=== PATIENT | female | born 1945 | race Caucasian/White ===

== ENCOUNTER 2017-10-20 09:08 | Emergency (ER) | payer MEDICAID ==
--- NOTE | 2017-10-20 09:34 | ED Physician Chart ---
ED Chief Complaint/HPI - Patient Information Date Seen:: 10/20/17 Time Seen:: 09:29 Chief Complaint:: Left lower leg dislocation History of Present Illness:: 72 yo female had a left anterior tibia discoloration for 3 years. The discoloration started as a laceration 3 years ago. It was not painful or itchy. It did not have secretion. Recently, SNF noticed more changes of color. LLE venous u/s 2 weeks ago showed DVT and Eliquis was started. Despite the treatment , the skin lesions did not improve. The patient was unambulatory due to paraplegia from spinal cord injury. Allergies:: Allergies Allergy/AdvReac Type Severity Reaction Status Date / Time No Known Allergies Allergy Verified 10/20/17 09:24 ED Review of Systems - Review of Systems General/Constitutional: No fever, No chills Skin: Skin lesions Head: No headache Eyes: No loss of vision ENT: No earache Neck: No neck pain Cardio Vascular: No chest pain Pulmonary: No SOB GI: No nausea, No vomiting Neurological: Other (paraplegic ) ED Past Medical History - Past Medical History Past Medical History: HTN, DM, Dyslipidemia, Seizures, Other (Parkinson's disease) Social History: Non Smoker, No Alcohol, No Drug Use Surgical History: other (left ear surgery) Family Medical History - Family Member Mother History Unknown: Yes Ethnicity: Living Status: Unknown ED Physical Exam - Physical Examination General/Constitutional: Awake, Alert Other Gen/Cons comments:: bed bound Head: Atraumatic Eyes: PERRL ENMT: Nasal exam nl Neck: No nuchal rigidity Respiratory: Clear to Auscultation Cardio Vascular: RRR, No murmur, gallop, rubs, NL S1 S2 GI: No tenderness/rebounding/guarding Other Extremities comments:: Left anterior tibial focal dark brown pigmentation with increased superficial keratosis Other Neuro/Psych comments:: Bilateral feet drop, patellar reflex absence, ankle reflex absence. Motor strength: bilateral upper extremities 5/5, b/l lower extremities 1/5 ED Labs/Radiology/EKG Results - Radiology Results Results: Left lower extremity venous u/s: no DVT Left lower extremity arterial u/s: mild to moderate plaque throughout arterial system. No occlusion ED Assessment - Assessment General Assessment: Left lower extremity stasis dermatitis Peripheral vascular disease Assessment/Comments:: CBC, CMP, lipid panel, HbA1c, PT/PTT, CRP, ESR EKG, Trop I Left lower extremity venous/arterial duplex NS 1L IV bolus Aspirin 81mg po Spoke with Dr. Paul Roberto who agreed to have outpatient management of peripheral vascular disease D/c to SNF New order: Aspirin 81mg daily ED Septic Shock - . Is Septic Shock (SBP<90, OR Lactate>4 mmol\L) present?: No ED Reassessment (Disposition) - Reassessment Reassessment Condition:: Improved - Patient Disposition Discharge/Transfer:: Shelter Care - SNF
[2017-10-20 10:23] LABS: % BASOPHILS 1.4 % (0.0-2.0); % LYMPHOCYTES 32.4 % (20.0-50.0); % MONOCYTES 5.9 % (2.0-10.0); % NEUTROPHILS 59.3 % (40.0-80.0); BASOPHILE ABSOLUTE 0.1 Th/cumm (0-0.2); EOSINOPHILE ABSOLUTE 0.1 Th/cmm (0.1-0.4); HEMOGLOBIN 13.3 gm/dL (12-16); LYMPHOCYTE ABSOLUTE 3.4 Th/cmm (1.5-3.0); MEAN CELL VOLUME 90.9 fl (81-100); MEAN CORPUSCULAR HEMOGLOBIN 30.4 pg (27.0-31.0); MEAN CORPUSCULAR HGB CONC 33.5 pg (28.0-36.0); MONOCYTE ABSOLUTE 0.6 Th/cmm (0.3-1.0); NEUTROPHILE ABSOLUTE 6.4 Th/cmm (1.8-8.0); RED BLOOD COUNT 4.37 Mil/cmm (3.80-5.20); RED CELL DISTRIBUTION WIDTH 14.5 % (11.5-20.0); WHITE BLOOD COUNT 10.6 Th/cmm (4.8-10.8)
[2017-10-20 10:24] LABS: HEMATOCRIT 39.7 % (41.0-60); PLATELET COUNT 170 Th/cmm (150-400)
[2017-10-20 10:40] LABS: ALB/GLOB RATIO 0.9 (1.0-1.8); ALBUMIN 3.3 gm/dL (3.7-5.3); ALKALINE PHOSPHATASE 68 U/L (34-104); ANION GAP 9.4 (7.0-16.0); BILIRUBIN,TOTAL 0.3 mg/dL (0.3-1.0); BUN - UREA NITROGEN 25 mg/dL (7-25); CALCIUM SERUM 9.5 mg/dL (8.6-10.3); CARBON DIOXIDE 25.5 mEq/L (21.0-31.0); CHLORIDE 105 mEq/L (98-107); CREATININE - SERUM 0.5 mg/dL (0.6-1.2); GFR AFRICAN-AMERICAN > 60.0 ml/min (>90); GFR NON AFRICAN-AMERICAN > 60.0 ml/min; GLUCOSE 98 mg/dL (70-105); POTASSIUM SERUM 3.9 mEq/L (3.5-5.1); SGOT 17 U/L (13-39); SGPT/ALT 6 U/L (7-52); SODIUM SERUM 136 mEq/L (136-145); TOTAL PROTEIN,SERUM 6.9 gm/dL (6.0-8.3)
[2017-10-20] MEDS ORDERED: Sodium Chloride 0.9% 1,000 ML IV ONE (11:15)
[2017-10-20 11:34] LABS: CHOLESTEROL 108 mg/dL (<200); HDL -HIGH DENSITY LIPOPROTEIN 47 mg/dL (23-92); TRIGLYCERIDES 93 mg/dL (<150)
[2017-10-20 11:43] LABS: INR 1.11 (0.5-1.4); PROTHROMBIN TIME (TEST) 11.6 SECONDS (9.5-11.5)
[2017-10-20] MEDS ORDERED: Aspirin 81mg Chewable Tab PO STA (12:13)
[2017-10-20] MEDS ORDERED: Aspirin 81mg Chewable Tab ONE (12:14)
--- NOTE | 2017-10-20 12:35 | Diagnostic Imaging Report ---
Left lower extremity Doppler venous ultrasound exam HISTORY: Pain/swelling Sonographic sector images were obtained through the deep venous systems of the left leg. Associated Doppler data was obtained. The exam demonstrates patency of the common femoral, superficial femoral, popliteal, and posterior tibial veins. Specifically, no thrombus is seen. There are normal compressibility and augmentation responses. IMPRESSION: Negative exam for deep vein thrombophlebitis.
--- NOTE | 2017-10-20 15:24 | Diagnostic Imaging Report ---
Left lower extremity Doppler arterial ultrasound exam HISTORY: Swelling, pain Sonographic sector images were obtained through the arterial system of the left leg. Associated Doppler data was obtained. The exam demonstrates biphasic waveforms within the common femoral, superficial femoral, popliteal, anterior tibial, and dorsalis pedis arteries. Monophasic waveforms noted through the posterior tibial artery region. No significant decrease in velocity identified through the arterial system. The ankle-brachial index could not be evaluated due to the presence of an intravascular catheter within the upper extremity. Sonographic sector images demonstrate mild to moderate diffuse atherosclerotic changes throughout the arterial system. No significant focal narrowing or stenosis the sonographically identified. IMPRESSION: 1. Evidence of mild to moderate diffuse atherosclerotic changes. No significant focal narrowing, stenosis, or occlusion identified.
[2017-10-20 18:34] LABS: A1C % 5.4 % (4.0-6.0)
== END 2017-10-20 13:20 ==
LOC: ER 09:08
DX: S83.105A Unspecified dislocation of left knee, initial encounter (principal); I10 Essential (primary) hypertension; E11.9 Type 2 diabetes mellitus without complications; E78.5 Hyperlipidemia, unspecified; X58.XXXA Exposure to other specified factors, initial encounter; Y93.89 Activity, other specified; Y92.89 Other specified places as the place of occurrence of the external cause; Y99.8 Other external cause status
CPT/HCPCS: 36415-UA; 80053-TC; 80061-TC; 83036-90; 83880-TC; 84484-TC; 85025-TC; 85379-TC; 85610-TC; 85652-TC; 86141-TC; 93005; 93926-LT-TC; 93971-TC-LT; J7030; Z7610